=== PATIENT | male | born 1960 | race Caucasian/White ===

== ENCOUNTER → 2018-05-01 | Outpatient (CLI) | payer BC ==
--- NOTE | 2018-05-01 09:45 | RAD ---
Right elbow, 3 views, 05/01/2018: HISTORY: Clicking sounds No fracture or dislocation is identified. There is minimal spurring at the elbow joint. No joint effusion is evident. IMPRESSION: No acute bony abnormality is detected. Electronically signed by: Thierry Jackman MD (05/01/2018 9:42 AM) [facility], [place]
== END | disposition home or self-care (01) ==
LOC: DXRAD 08:58 → EDBD 08:58
PROVIDERS: ATTEND Neuromusculoskeletal Medicine & OMM
DX: R29.898 Other symptoms and signs involving the musculoskeletal system (principal)
CPT/HCPCS: 73080

== ENCOUNTER → 2018-06-12 | Outpatient (CLI) | payer BC ==
--- NOTE | 2018-06-12 09:19 | CARD ---
MR#: [id number] Date of Study: 06/12/2018 Ordering Physician: TIFFANIE CARRASCO, Referring Physician: TIFFANIE CARRASCO, Tech: Zaida Adams RDCS APPROVED REPORT EXAM: Two-dimensional and M-mode echocardiogram with Doppler and color Doppler. Other Information Quality : Good INDICATION Hypertension/HCVD 2D DIMENSIONS RVDd3.2 (2.9-3.5cm)Left Atrium(2D)3.6 (1.6-4.0cm) IVSd1.2 (0.7-1.1cm)Aortic Root(2D)3.1 (2.0-3.7cm) LVDd5.2 (3.9-5.9cm)LVOT Diameter2.5 (1.8-2.4cm) PWd1.2 (0.7-1.1cm)LVDs3.5 (2.5-4.0cm) FS (%) 32.5 %SV79.8 ml LVEF(%)60.4 (>50%) Aortic Valve AoV Peak Doug.147.5cm/sAoV VTI21.1cm AO Peak GR.8.7mmHgLVOT Peak Doug.106.4cm/s LVOT VTI 18.83cmAO Mean GR.4mmHg AGUILA (VMAX)3.99pp7IZS (VTI)4.55cm2 Mitral Valve MV E Cocaeclt70.2cm/sMV DECEL MIIK575yr MV A Cdgotaai78.5cm/sE/A Ratio0.7 Tricuspid Valve TR P. Dazdqugr056tb/sRAP EJARYTPM4lvCf TR Peak Gr.86llTzXUKE78toDq Pulmonary Vein S1 Sdectmds53.3cm/sD2 Aivxfobc94.1cm/s LEFT VENTRICLE The left ventricle is normal size. There is mild concentric left ventricular hypertrophy. The left ve ntricular systolic function is normal. The Ejection Fraction is 55-60%. There is normal LV segmental wall motion. Transmitral Doppler flow pattern is Grade I-abnormal relaxation pattern. RIGHT VENTRICLE The right ventricle is normal size. The right ventricular systolic function is normal. ATRIA The left atrium size is normal. The right atrium size is normal. The interatrial septum is intact wit h no evidence for an atrial septal defect or patent foramen ovale as noted on 2-D or Doppler imaging. AORTIC VALVE The aortic valve is calcified but opens well. Doppler and Color Flow revealed no significant aortic r egurgitation. There is no significant aortic valvular stenosis. MITRAL VALVE The mitral valve is normal in structure and function. There is no evidence of mitral valve prolapse. There is no mitral valve stenosis. Doppler and Color Flow revealed no mitral valve regurgitation note d. TRICUSPID VALVE The tricuspid valve is normal in structure and function. Doppler and Color Flow revealed physiologica l tricuspid regurgitation. The PA pressure was estimated at 29 mmHg. There is no tricuspid valve sten osis. PULMONIC VALVE The pulmonic valve is not well visualized. Doppler and Color Flow revealed trace to mild pulmonic shantelle vular regurgitation. There is no pulmonic valvular stenosis. GREAT VESSELS The aortic root is normal in size. The ascending aorta is normal in size. The IVC was not visualized. PERICARDIAL EFFUSION There is no evidence of significant pericardial effusion. Critical Notification Critical Value: No <Conclusion> The left ventricular systolic function is normal. The Ejection Fraction is 55-60%. There is normal LV segmental wall motion. Transmitral Doppler flow pattern is Grade I-abnormal relaxation pattern. No significant valvular abnormalities. There is no evidence of significant pericardial effusion. Signed by : Kentrell Marley, Electronically Approved : 06/12/2018 09:18:58
== END | disposition home or self-care (01) ==
LOC: ECHO 08:01
PROVIDERS: ATTEND Internal Medicine Cardiovascular Disease
DX: I10 Essential (primary) hypertension (principal); I07.1 Rheumatic tricuspid insufficiency
CPT/HCPCS: 93306

== ENCOUNTER → 2019-06-28 | Outpatient (CLI) | payer BC ==
[2019-06-28 10:32] LABS: ALBUMIN 3.3 g/dL (3.4-5.0); ALBUMIN/GLOBULIN RATIO 0.9 (1.0-1.7); CALCIUM 8.1 mg/dL (8.5-10.1); CREATININE 1.4 mg/dL (0.7-1.3); GFR 52.4; POTASSIUM 4.6 mmol/L (3.5-5.1); TOTAL BILIRUBIN 0.9 mg/dL (0.2-1.0); TOTAL PROTEIN 7.1 g/dL (6.4-8.2)
[2019-06-28 10:38] LABS: BASO % 1 % (0-3); EOS # 0.1 x10^3/uL (0.0-0.7); EOS % 2 % (0-3); HEMATOCRIT 51.8 % (39.0-53.0); HEMOGLOBIN 17.2 g/dL (13.0-17.5); LYMPH # 1.9 x10^3/uL (1.0-4.8); LYMPH % 28 % (24-48); MEAN CORPUSCULAR HEMOGLOBIN 31 pg (25-35); MEAN CORPUSCULAR HGB CONC 33 g/dL (31-37); MEAN CORPUSCULAR VOLUME 94 fL (79-100); MONO # 0.5 x10^3/uL (0.0-1.1); MONO % 8 % (0-9); NEUT # 4.1 x10^3uL (1.8-7.7); NEUT % 62 % (31-73); PLATELET COUNT 185 x10^3/uL (140-400); RED BLOOD COUNT 5.52 x10^6/uL (4.30-5.70); RED CELL DISTRIBUTION WIDTH 14.5 % (11.5-14.5); WHITE BLOOD COUNT 6.6 x10^3/uL (4.0-11.0)
[2019-06-28 11:51] LABS: BACTERIA,URINE 0 /HPF (0-FEW); BILIRUBIN,URINE NEG (NEG); CLARITY,URINE CLEAR; COLOR,URINE YELLOW; GLUCOSE,URINE NEG (NEG); NITRITE,URINE NEG (NEG); RBC,URINE OCC /HPF (0-2); SQUAMOUS EPITHELIAL CELL,UR OCC /LPF; UROBILINOGEN,URINE 0.2 mg/dL (0.2 mg/dL); WBC,URINE OCC /HPF (0-4)
[2019-06-28 15:09] LABS: FREE T4 0.73 ng/dL (0.76-1.46); THYROID STIM HORMONE (TSH) 2.209 uIU/mL (0.358-3.740)
[2019-06-29 01:06] LABS: HEMOGLOBIN A1C 5.8 % (4.8-5.6)
== END | disposition home or self-care (01) ==
LOC: LAB 08:19
PROVIDERS: ATTEND Physician Assistant Medical
DX: N40.0 Benign prostatic hyperplasia without lower urinary tract symptoms (principal); R73.9 Hyperglycemia, unspecified
CPT/HCPCS: 36415; 80053; 81001; 83036; 84153; 84439; 84443; 84481; 85025; G0103